=== PATIENT | male | born 1940 | race Caucasian/White ===

== ENCOUNTER 2017-07-09 18:23 | Observation (INO) ==
[2017-07-09 19:41] LABS: Basophils # 0.1 10*3/uL (0.0-0.2); Eosinophils # 0.1 10*3/uL (0.0-0.87); Hematocrit 41.8 VOL% (42.0-52.0); Hemoglobin 13.7 GM/DL (14.0-18.0); Immature Granulocytes % 0.5 %; Immature Granulocytes Absolute 0.03 #; Lymphocytes # 2.1 10*3/uL (1.4-4.0); Lymphocytes % 34.8 % (21.2-54.2); Mean Corpuscular HGB Conc 32.8 GM/DL (32-36); Mean Corpuscular Hemoglobin 30 PG (27-34); Mean Corpuscular Volume 90.9 FL (87-102); Mean Platelet Volume 10.9 FL (9.6-12.0); Monocytes # 0.4 10*3/uL (0.11-0.8); Monocytes % 6.6 % (1.7-12.7); Neutrophils # 3.2 10*3/uL (1.4-7.4); Neutrophils % 55.1 % (38.7-73.9); Platelet Count 163 T/CUMM (130-400); Red Cell Distribution Width 13.5 % (9.3-17.3); White Blood Count 5.9 T/CUMM (4-12)
[2017-07-09 19:54] LABS: INR 1.1; PT Patient Result 11.8 SECS
[2017-07-09 20:05] LABS: Albumin 3.5 G/DL (3.4-5.0); Bilirubin,Total 0.9 MG/DL (0.2-1.0); Calcium 8.5 MG/DL (8.5-10.1); Osmolality,Calculated 279.4 MOS/KG (273-304); Potassium 4.1 MMOL/L (3.5-5.1); Total Protein 6.8 G/DL (6.4-8.3)
[2017-07-09 20:11] LABS: Troponin I Only 0.061 NG/ML (0.00-0.045)
[2017-07-09] MEDS ORDERED: ASPIRIN 325 MG TABLET PO STA (22:53)
[2017-07-09] MEDS ORDERED: ENOXAPARIN 100 MG/ML SYRINGE SUBCUT STA (22:53)
[2017-07-09] MEDS ORDERED: METOPROLOL TARTRATE 25 MG TABLET PO STA (22:53)
[2017-07-09] MEDS ORDERED: ONDANSETRON 4 MG/2 ML VIAL IV STA (22:53)
[2017-07-09] MEDS ORDERED: MORPHINE 4 MG/1 ML VIAL IV STA (22:53)
[2017-07-09] MEDS ORDERED: NITROGLYCERIN 2% OINT 1 INCH/GM PACK TOP STA (22:53)
[2017-07-09] MEDS ORDERED: NITROGLYCERIN 2% OINT 1 INCH/GM PACK TOP ONE (22:56)
[2017-07-09] MEDS ORDERED: ENOXAPARIN 100 MG/ML SYRINGE SUBCUT ONE (22:56)
[2017-07-09] MEDS ORDERED: MORPHINE 4 MG/1 ML VIAL ONE (22:57)
[2017-07-09] MEDS ORDERED: METOPROLOL TARTRATE 25 MG TABLET ONE (22:57)
[2017-07-09] MEDS ORDERED: ASPIRIN 325 MG TABLET ONE (22:57)
[2017-07-09] MEDS ORDERED: ONDANSETRON 4 MG/2 ML VIAL ONE (22:57)
[2017-07-10] MEDS ORDERED: ONDANSETRON 4 MG/2 ML VIAL IV PRN (00:59)
[2017-07-10] MEDS ORDERED: MORPHINE 4 MG/1 ML VIAL IV PRN (00:59)
[2017-07-10] MEDS ORDERED: NITROGLYCERIN SL 0.4 MG TABLET SL PRN (01:21)
[2017-07-10] MEDS: CILOSTAZOL 100 MG TABLET PO SCH ×3 (02:35→20:47)
[2017-07-10 05:02] LABS: Hematocrit 39.1 VOL% (42.0-52.0); Hemoglobin 12.7 GM/DL (14.0-18.0); White Blood Count 4.2 T/CUMM (4-12)
[2017-07-10 05:03] LABS: Basophils # 0.1 10*3/uL (0.0-0.2); Basophils % 1.2 % (0.0-0.8); Eosinophils # 0.1 10*3/uL (0.0-0.87); Eosinophils % 3.3 % (0.00-10.9); Immature Granulocytes % 0.2 %; Immature Granulocytes Absolute 0.01 #; Lymphocytes % 47.7 % (21.2-54.2); Mean Corpuscular HGB Conc 32.5 GM/DL (32-36); Mean Corpuscular Hemoglobin 30 PG (27-34); Mean Corpuscular Volume 90.9 FL (87-102); Mean Platelet Volume 11.3 FL (9.6-12.0); Monocytes # 0.3 10*3/uL (0.11-0.8); Monocytes % 7.1 % (1.7-12.7); Neutrophils # 1.7 10*3/uL (1.4-7.4); Neutrophils % 40.5 % (38.7-73.9); Platelet Count 140 T/CUMM (130-400); Red Cell Distribution Width 13.5 % (9.3-17.3)
[2017-07-10] MEDS: LEVOTHYROXINE 50 MCG TABLET PO SCH (06:15)
[2017-07-10 06:25] LABS: Calcium 8.2 MG/DL (8.5-10.1); Osmolality,Calculated 282.1 MOS/KG (273-304); Potassium 3.9 MMOL/L (3.5-5.1); Risk Ratio 2.37; Thyroid Stimulating Hormone 1.88 uIU/ml (0.358-3.74); VLDL CHOLESTEROL 22.6 MG/DL
[2017-07-10] MEDS: FUROSEMIDE 40 MG TABLET PO SCH (09:06)
[2017-07-10] MEDS: POTASSIUM CHLORIDE 20 MEQ TABLET PO SCH (09:06)
[2017-07-10] MEDS: ASPIRIN EC 81 MG TABLET PO SCH (09:06)
[2017-07-10] MEDS: BISOPROLOL 5 MG TABLET PO SCH (09:07)
[2017-07-10] MEDS: PANTOPRAZOLE 40 MG TABLET PO SCH (09:07)
[2017-07-10] MEDS: amLODIPine 5 MG TABLET PO SCH (09:07)
[2017-07-10] MEDS: CYANOCOBALAMIN 500 MCG TABLET PO SCH (09:07)
[2017-07-10] MEDS: ENOXAPARIN 100 MG/ML SYRINGE SUBCUT SCH (12:34)
[2017-07-10] MEDS: ATORVASTATIN 10 MG TABLET PO SCH (20:47)
[2017-07-11 04:27] LABS: Basophils % 0.7 % (0.0-0.8); Eosinophils # 0.1 10*3/uL (0.0-0.87); Eosinophils % 2.4 % (0.00-10.9); Hematocrit 38.3 VOL% (42.0-52.0); Hemoglobin 13.2 GM/DL (14.0-18.0); Immature Granulocytes % 0.2 %; Immature Granulocytes Absolute 0.01 #; Lymphocytes # 1.6 10*3/uL (1.4-4.0); Lymphocytes % 29.9 % (21.2-54.2); Mean Corpuscular HGB Conc 34.5 GM/DL (32-36); Mean Corpuscular Hemoglobin 30 PG (27-34); Mean Platelet Volume 10.8 FL (9.6-12.0); Monocytes # 0.4 10*3/uL (0.11-0.8); Monocytes % 6.7 % (1.7-12.7); Neutrophils # 3.2 10*3/uL (1.4-7.4); Neutrophils % 60.1 % (38.7-73.9); Platelet Count 142 T/CUMM (130-400); Red Blood Count 4.35 MC/CUMM (3.8-5.5); Red Cell Distribution Width 13.2 % (9.3-17.3); White Blood Count 5.4 T/CUMM (4-12)
[2017-07-11 05:00] LABS: Calcium 8.4 MG/DL (8.5-10.1); Osmolality,Calculated 280.3 MOS/KG (273-304); Potassium 3.6 MMOL/L (3.5-5.1)
[2017-07-11] MEDS: LEVOTHYROXINE 50 MCG TABLET PO SCH (06:15)
[2017-07-11] MEDS: ASPIRIN EC 81 MG TABLET PO SCH (08:38)
[2017-07-11] MEDS: FUROSEMIDE 40 MG TABLET PO SCH (08:38)
[2017-07-11] MEDS: CILOSTAZOL 100 MG TABLET PO SCH ×2 (08:38→21:58)
[2017-07-11] MEDS: POTASSIUM CHLORIDE 20 MEQ TABLET PO SCH (08:39)
[2017-07-11] MEDS: CYANOCOBALAMIN 500 MCG TABLET PO SCH (08:39)
[2017-07-11] MEDS: PANTOPRAZOLE 40 MG TABLET PO SCH (08:40)
[2017-07-11] MEDS: amLODIPine 5 MG TABLET PO SCH (08:40)
[2017-07-11] MEDS: BISOPROLOL 5 MG TABLET PO SCH (08:41)
[2017-07-11] MEDS ORDERED: diphenhydrAMINE CAP 25 MG CAPSULE PO ONE (12:00)
[2017-07-11] MEDS ORDERED: ASPIRIN 325 MG TABLET PO ONE (12:00)
[2017-07-11] MEDS ORDERED: DIAZEPAM 5 MG TABLET PO ONE (12:00)
[2017-07-11] MEDS ORDERED: SODIUM CHLORIDE 0.45% 1,000 ML IV SCH (12:00)
[2017-07-11] MEDS ORDERED: HEPARIN/NACL 0.9% 2 UNITS/ML 1,000 ML IV ONE (12:25)
[2017-07-11] MEDS ORDERED: MAGNESIUM SULF RIDER 2 GM in PREMIX 1 EACH IV PRN (12:41)
[2017-07-11] MEDS ORDERED: POTASSIUM CHLORIDE RIDER 10 MEQ in PREMIX 1 EACH IV PRN (12:41)
[2017-07-11] MEDS ORDERED: diphenhydrAMINE CAP 25 MG CAPSULE ONE (12:43)
[2017-07-11] MEDS ORDERED: MIDAZOLAM 2 MG/2 ML VIAL ONE (13:10)
[2017-07-11] MEDS ORDERED: HYDROmorphone 2 MG/1 ML VIAL ONE (13:10)
[2017-07-11] MEDS ORDERED: BIVALIRUDIN 250 MG VIAL IV ONE (13:36)
[2017-07-11] MEDS ORDERED: ONDANSETRON 4 MG/2 ML VIAL ONE (14:45)
[2017-07-11] MEDS ORDERED: HEPARIN/NACL 0.9% 2 UNITS/ML 500 ML IV ONE (14:55)
[2017-07-11] MEDS ORDERED: TICAGRELOR 90 MG TABLET ONE (15:22)
[2017-07-11] MEDS ORDERED: ZALEPLON 5 MG CAPSULE PO PRN (15:30)
[2017-07-11] MEDS: TICAGRELOR 90 MG TABLET PO SCH (21:58)
[2017-07-11] MEDS: ATORVASTATIN 10 MG TABLET PO SCH (21:58)
[2017-07-12] MEDS: ENOXAPARIN 100 MG/ML SYRINGE SUBCUT SCH (03:13)
[2017-07-12 05:26] LABS: Basophils % 0.3 % (0.0-0.8); Eosinophils # 0.1 10*3/uL (0.0-0.87); Hematocrit 37.6 VOL% (42.0-52.0); Hemoglobin 13.1 GM/DL (14.0-18.0); Immature Granulocytes % 0.3 %; Immature Granulocytes Absolute 0.02 #; Lymphocytes # 1.4 10*3/uL (1.4-4.0); Lymphocytes % 23.2 % (21.2-54.2); Mean Corpuscular HGB Conc 34.8 GM/DL (32-36); Mean Corpuscular Hemoglobin 30 PG (27-34); Mean Corpuscular Volume 86.2 FL (87-102); Mean Platelet Volume 11.3 FL (9.6-12.0); Monocytes # 0.5 10*3/uL (0.11-0.8); Monocytes % 7.6 % (1.7-12.7); Neutrophils % 67.6 % (38.7-73.9); Platelet Count 157 T/CUMM (130-400); Red Blood Count 4.36 MC/CUMM (3.8-5.5); Red Cell Distribution Width 13.2 % (9.3-17.3); White Blood Count 5.9 T/CUMM (4-12)
[2017-07-12 05:57] LABS: Calcium 8.3 MG/DL (8.5-10.1); Osmolality,Calculated 275.7 MOS/KG (273-304); Potassium 3.6 MMOL/L (3.5-5.1)
[2017-07-12 06:00] LABS: Calcium 8.5 MG/DL (8.5-10.1); Osmolality,Calculated 275.7 MOS/KG (273-304); Potassium 3.5 MMOL/L (3.5-5.1)
[2017-07-12 06:09] LABS: Troponin I Only 0.181 NG/ML (0.00-0.045)
[2017-07-12] MEDS: LEVOTHYROXINE 50 MCG TABLET PO SCH (06:32)
[2017-07-12] MEDS: TICAGRELOR 90 MG TABLET PO SCH ×2 (08:50→20:54)
[2017-07-12] MEDS: ASPIRIN EC 81 MG TABLET PO SCH (08:50)
[2017-07-12] MEDS: BISOPROLOL 5 MG TABLET PO SCH (08:51)
[2017-07-12] MEDS: POTASSIUM CHLORIDE 20 MEQ TABLET PO SCH (08:51)
[2017-07-12] MEDS: CYANOCOBALAMIN 500 MCG TABLET PO SCH (08:52)
[2017-07-12] MEDS: FUROSEMIDE 40 MG TABLET PO SCH (08:53)
[2017-07-12] MEDS: amLODIPine 5 MG TABLET PO SCH (08:56)
[2017-07-12] MEDS: PANTOPRAZOLE 40 MG TABLET PO SCH (09:05)
[2017-07-12] MEDS: CILOSTAZOL 100 MG TABLET PO SCH ×2 (10:34→20:54)
[2017-07-12 12:03] LABS: Apearance,Urine CLOUDY (Clear); Bacteria,Urine Occasional /HPF (Few); Bilirubin,Urine Negative (Negative); Blood, Urine Large mg/dL (Negative); Glucose,Urine (UA) Negative (Negative); Ketones,Urine Negative (Negative); Mucus,Urine Occasional /LPF (Occasional); Nitrite,Urine Negative (Negative); Protein,Urine 100 MG/DL; RBC,Urine 390 /HPF (0-4); Urine Color Amber (Yellow); Urine Specific Gravity 1.029 (1.001-1.035); WBC,Urine 336 /HPF (0-6)
[2017-07-12] MEDS ORDERED: LIDOCAINE 100 MG/5 ML SYRINGE ONE (12:36)
[2017-07-12] MEDS ORDERED: PROPOFOL 200 MG/20 ML VIAL IV ONE (12:36)
[2017-07-12] MEDS ORDERED: GLYCOPYRROLATE 0.4 MG/2 ML VIAL ONE (12:36)
[2017-07-12] MEDS: cefTRIAXone 2,000 MG in SYRINGE 1 EACH IV SCH (15:59)
[2017-07-12] MEDS: ATORVASTATIN 80 MG TABLET PO SCH (20:54)
[2017-07-13] MEDS: LEVOTHYROXINE 50 MCG TABLET PO SCH (06:49)
[2017-07-13] MEDS: TICAGRELOR 90 MG TABLET PO SCH ×2 (08:25→21:11)
[2017-07-13] MEDS: FUROSEMIDE 40 MG TABLET PO SCH (08:25)
[2017-07-13] MEDS: CILOSTAZOL 100 MG TABLET PO SCH (08:25)
[2017-07-13] MEDS: amLODIPine 5 MG TABLET PO SCH (08:25)
[2017-07-13] MEDS: BISOPROLOL 5 MG TABLET PO SCH (08:25)
[2017-07-13] MEDS: PANTOPRAZOLE 40 MG TABLET PO SCH (08:25)
[2017-07-13] MEDS: ASPIRIN EC 81 MG TABLET PO SCH (08:25)
[2017-07-13] MEDS: POTASSIUM CHLORIDE 20 MEQ TABLET PO SCH (08:25)
[2017-07-13] MEDS: CYANOCOBALAMIN 500 MCG TABLET PO SCH (08:25)
[2017-07-13] MEDS: cefTRIAXone 2,000 MG in SYRINGE 1 EACH IV SCH (14:39)
[2017-07-13] MEDS ORDERED: TAMSULOSIN 0.4 MG CAPSULE PO SCH (21:00)
[2017-07-13] MEDS: CIPROFLOXACIN 250 MG TABLET PO SCH (21:11)
[2017-07-13] MEDS: ATORVASTATIN 80 MG TABLET PO SCH (21:11)
[2017-07-14] MEDS: LEVOTHYROXINE 50 MCG TABLET PO SCH (05:49)
[2017-07-14] MEDS: CYANOCOBALAMIN 500 MCG TABLET PO SCH (08:44)
[2017-07-14] MEDS: ASPIRIN EC 81 MG TABLET PO SCH (08:44)
[2017-07-14] MEDS: amLODIPine 5 MG TABLET PO SCH (08:44)
[2017-07-14] MEDS: BISOPROLOL 5 MG TABLET PO SCH (08:44)
[2017-07-14] MEDS: TICAGRELOR 90 MG TABLET PO SCH (08:44)
[2017-07-14] MEDS: POTASSIUM CHLORIDE 20 MEQ TABLET PO SCH (08:45)
[2017-07-14] MEDS: PANTOPRAZOLE 40 MG TABLET PO SCH (08:45)
[2017-07-14] MEDS: FUROSEMIDE 40 MG TABLET PO SCH (08:45)
[2017-07-14] MEDS: CIPROFLOXACIN 250 MG TABLET PO SCH (08:45)
[2017-07-14 12:06] VITALS: BP 107/61
== END 2017-07-14 13:30 | disposition home or self-care (01) ==
LOC: N.EDINP 18:23 → N.ED 18:23 → SUATTDRO 07-10 00:57 → N.CC 07-10 01:53 → N.TELEN 07-12 18:08
PROVIDERS: ATTEND Hospitalist
PROC: CLCCHCL (ICD-10-PCS; 2017-07-11 14:15)

== ENCOUNTER 2018-11-11 18:06 | Inpatient (IN) ==
[2018-11-11 18:53] LABS: Basophils % 0.2 % (0.0-0.8); Hematocrit 44.3 VOL% (42.0-52.0); Immature Granulocytes % 0.5 %; Immature Granulocytes Absolute 0.05 #; Lymphocytes # 1.1 10*3/uL (1.4-4.0); Lymphocytes % 10.3 % (21.2-54.2); Mean Corpuscular HGB Conc 33.9 GM/DL (32-36); Mean Corpuscular Volume 89.5 FL (87-102); Mean Platelet Volume 10.9 FL (9.6-12.0); Monocytes % 8.2 % (1.7-12.7); Neutrophils % 80.8 % (38.7-73.9); Platelet Count 134 T/CUMM (130-400); Red Blood Count 4.95 MC/CUMM (3.8-5.5); Red Cell Distribution Width 13.1 % (9.3-17.3); White Blood Count 10.3 T/CUMM (4-12)
[2018-11-11 19:07] LABS: Albumin 3.4 G/DL (3.4-5.0); Bilirubin,Total 2.6 MG/DL (0.2-1.0); Calcium 8.9 MG/DL (8.5-10.1); Osmolality,Calculated 277.8 MOS/KG (273-304); Total Protein 7.5 G/DL (6.4-8.3)
[2018-11-11] MEDS ORDERED: SODIUM CHLORIDE 0.9% 1,000 ML IV STA (19:38)
[2018-11-11] MEDS ORDERED: POTASSIUM CHLORIDE 20 MEQ TABLET PO STA (19:38)
[2018-11-11] MEDS ORDERED: LABETALOL 100 MG/20 ML VIAL IV PRN (20:40)
[2018-11-11] MEDS ORDERED: ONDANSETRON 4 MG/2 ML VIAL IV PRN (20:40)
[2018-11-11] MEDS ORDERED: ENOXAPARIN 40 MG/0.4 ML SYRINGE SUBCUT SCH (21:00)
[2018-11-11 21:09] LABS: Risk Ratio 2.58
[2018-11-12 02:31] LABS: Apearance,Urine CLEAR (Clear); Bacteria,Urine Occasional /HPF (Few); Bilirubin,Urine Negative (Negative); Blood, Urine Moderate mg/dL (Negative); Glucose,Urine (UA) 50 mg/dL (Negative); Ketones,Urine 5 mg/dL (Negative); Mucus,Urine Occasional /LPF (Occasional); Nitrite,Urine Negative (Negative); Protein,Urine Negative; RBC,Urine 2 /HPF (0-4); Squamous Epithelial Cell,Urine Occasional /HPF (0-10); Urine Color Yellow (Yellow); Urine Specific Gravity 1.018 (1.001-1.035); Urine Urobilinogen < 2.0 EU/DL (0.2-1.0); WBC,Urine 1 /HPF (0-6)
[2018-11-12 02:52] LABS: Barbiturates Screen,Urine Negative (Negative); Benzodiazepines Screen,Urine Negative (Negative); Cannabinoid Screen,Urine Negative (Negative); Opiate Screen,Urine Negative (Negative); Phencyclidine Screen,Urine Negative (Negative)
[2018-11-12] MEDS: CILOSTAZOL 100 MG TABLET PO SCH ×3 (07:12→22:46)
[2018-11-12 07:42] LABS: Bilirubin,Total 2.7 MG/DL (0.2-1.0); Calcium 8.6 MG/DL (8.5-10.1); Osmolality,Calculated 278.7 MOS/KG (273-304); Total Protein 6.9 G/DL (6.4-8.3)
[2018-11-12 08:01] LABS: Calcium 8.5 MG/DL (8.5-10.1); Osmolality,Calculated 278.7 MOS/KG (273-304)
[2018-11-12] MEDS: amLODIPine 2.5 MG TABLET PO SCH (09:47)
[2018-11-12] MEDS: CHLORTHALIDONE 25 MG TABLET PO SCH (09:47)
[2018-11-12] MEDS: LEVOTHYROXINE 50 MCG TABLET PO SCH (09:47)
[2018-11-12] MEDS: PANTOPRAZOLE 40 MG TABLET PO SCH (09:47)
[2018-11-12] MEDS: BISOPROLOL 5 MG TABLET PO SCH (09:47)
[2018-11-12] MEDS: TICAGRELOR 90 MG TABLET PO SCH (09:47)
[2018-11-12] MEDS: ATORVASTATIN 10 MG TABLET PO SCH (09:48)
[2018-11-12] MEDS: ACETAMINOPHEN 325 MG TABLET PO PRN ×2 (09:52→22:46)
[2018-11-12] MEDS ORDERED: LORazepam 2 MG/1 ML VIAL IV ONE (10:47)
[2018-11-12] MEDS: CARBIDOPA/LEVODOPA 25-100 MG TABLET PO SCH (22:46)
[2018-11-13 08:04] LABS: Basophils % 0.3 % (0.0-0.8); Hematocrit 42.7 VOL% (42.0-52.0); Hemoglobin 14.7 GM/DL (14.0-18.0); Immature Granulocytes % 0.6 %; Immature Granulocytes Absolute 0.05 #; Lymphocytes # 0.6 10*3/uL (1.4-4.0); Lymphocytes % 7.3 % (21.2-54.2); Mean Corpuscular HGB Conc 34.4 GM/DL (32-36); Mean Corpuscular Volume 88.8 FL (87-102); Mean Platelet Volume 10.9 FL (9.6-12.0); Monocytes % 5.7 % (1.7-12.7); Neutrophils % 86.1 % (38.7-73.9); Platelet Count 122 T/CUMM (130-400); Red Blood Count 4.81 MC/CUMM (3.8-5.5); White Blood Count 7.9 T/CUMM (4-12)
[2018-11-13 08:08] LABS: Calcium 8.3 MG/DL (8.5-10.1)
[2018-11-13 08:09] LABS: Osmolality,Calculated 280.7 MOS/KG (273-304)
[2018-11-13] MEDS: PANTOPRAZOLE 40 MG TABLET PO SCH (09:00)
[2018-11-13] MEDS: BISOPROLOL 5 MG TABLET PO SCH (09:00)
[2018-11-13] MEDS: amLODIPine 2.5 MG TABLET PO SCH (09:00)
[2018-11-13] MEDS: ATORVASTATIN 10 MG TABLET PO SCH (09:00)
[2018-11-13] MEDS: TICAGRELOR 90 MG TABLET PO SCH (09:00)
[2018-11-13] MEDS: CHLORTHALIDONE 25 MG TABLET PO SCH (09:00)
[2018-11-13] MEDS: CARBIDOPA/LEVODOPA 25-100 MG TABLET PO SCH ×3 (09:00→20:31)
[2018-11-13] MEDS: CILOSTAZOL 100 MG TABLET PO SCH ×2 (09:00→20:31)
[2018-11-13] MEDS: LEVOTHYROXINE 50 MCG TABLET PO SCH (09:00)
[2018-11-13] MEDS: ACETAMINOPHEN 325 MG TABLET PO PRN (11:32)
[2018-11-13 14:03] LABS: INR 1.2
[2018-11-14 05:58] LABS: Basophils % 0.1 % (0.0-0.8); Hematocrit 44.4 VOL% (42.0-52.0); Hemoglobin 15.3 GM/DL (14.0-18.0); Immature Granulocytes % 0.4 %; Immature Granulocytes Absolute 0.03 #; Lymphocytes # 0.3 10*3/uL (1.4-4.0); Lymphocytes % 4.4 % (21.2-54.2); Mean Corpuscular HGB Conc 34.5 GM/DL (32-36); Mean Corpuscular Volume 88.6 FL (87-102); Mean Platelet Volume 11.6 FL (9.6-12.0); Monocytes % 6.2 % (1.7-12.7); Neutrophils % 88.9 % (38.7-73.9); Platelet Count 142 T/CUMM (130-400); Red Blood Count 5.01 MC/CUMM (3.8-5.5); Red Cell Distribution Width 13.2 % (9.3-17.3); White Blood Count 7.8 T/CUMM (4-12)
[2018-11-14] MEDS ORDERED: cefTRIAXone 1,000 MG in SYRINGE 1 EACH IV SCH (06:00)
[2018-11-14] MEDS: ALBUTEROL/IPRATROPIUM 3 ML NEB RESP TX SCH ×3 (06:14→21:10)
[2018-11-14] MEDS: LEVOTHYROXINE 50 MCG TABLET PO SCH (06:23)
[2018-11-14 06:25] LABS: Band Neutrophils 4 % (0-10); Hypochromasia 1+; Lymphocytes 7 % (20-55); Platelet Estimate Normal; Segmented Neutrophils 87 % (50-85); Total Cells Counted 100
[2018-11-14 06:26] LABS: Ovalocytes Slight
[2018-11-14 06:31] LABS: Calcium 9.1 MG/DL (8.5-10.1); Osmolality,Calculated 290.4 MOS/KG (273-304)
[2018-11-14] MEDS ORDERED: AZITHROMYCIN INJ 500 MG in SODIUM CHLORIDE 0.9% 250 ML IV SCH (07:00)
[2018-11-14] MEDS ORDERED: LORazepam 2 MG/1 ML VIAL IV ONE (07:52)
[2018-11-14 08:22] LABS: ABG Base Excess 3.3 MMOL/L (-2.5-2.5); ABG HCO3 27.2 MMOL/L (20-26); ABG Oxygen Saturation 93.9 % (95-100); ABG PCO2 60.5 MM HG (35-48); ABG PH 7.326 (7.35-7.45); ABG PO2 77.6 MM HG (80-95); ABG TCO2 27.1 MMOL/L (23-27)
[2018-11-14] MEDS ORDERED: ETOMIDATE 20 MG/10 ML VIAL IV ONE ×2 (08:34→08:47)
[2018-11-14] MEDS ORDERED: SUCCINYLCHOLINE 200 MG/10 ML VIAL IV ONE (08:35)
[2018-11-14] MEDS ORDERED: fentaNYL 100 MCG/2 ML VIAL IV ONE (08:39)
[2018-11-14] MEDS ORDERED: PROPOFOL 1,000 MG/100 ML BOTTLE IV ONE (08:39)
[2018-11-14] MEDS ORDERED: SUCCINYLCHOLINE 200 MG/10 ML VIAL ONE (08:46)
[2018-11-14] MEDS: PROPOFOL 1,000 MG/100 ML BOTTLE IV SCH (09:00)
[2018-11-14 09:04] LABS: Pt O2 Delivery Device Ventilator
[2018-11-14 09:05] LABS: ABG Base Excess 1.3 MMOL/L (-2.5-2.5); ABG HCO3 25.6 MMOL/L (20-26); ABG Oxygen Saturation 99.7 % (95-100); ABG PCO2 51.9 MM HG (35-48); ABG PH 7.344 (7.35-7.45); ABG TCO2 24.3 MMOL/L (23-27)
[2018-11-14] MEDS: ATORVASTATIN 10 MG TABLET PO SCH (09:42)
[2018-11-14] MEDS: amLODIPine 2.5 MG TABLET PO SCH (09:42)
[2018-11-14] MEDS: CHLORTHALIDONE 25 MG TABLET PO SCH (09:42)
[2018-11-14] MEDS: PANTOPRAZOLE 40 MG TABLET PO SCH (09:43)
[2018-11-14] MEDS: CILOSTAZOL 100 MG TABLET PO SCH ×2 (09:43→22:01)
[2018-11-14] MEDS: CARBIDOPA/LEVODOPA 25-100 MG TABLET PO SCH ×3 (09:43→22:01)
[2018-11-14] MEDS: BISOPROLOL 5 MG TABLET PO SCH ×3 (09:43→22:01)
[2018-11-14] MEDS ORDERED: cefTRIAXone 1,000 MG in SYRINGE 1 EACH IV ONE (10:00)
[2018-11-14] MEDS: AMPICILLIN INJ 2,000 MG in SODIUM CHLORIDE 0.9% 100 ML IV SCH ×3 (10:25→22:11)
[2018-11-14] MEDS: POTASSIUM CHLORIDE INJ 30 MEQ in SODIUM CHLORIDE 0.9% 1,000 ML IV SCH (13:38)
[2018-11-14] MEDS: VANCOMYCIN INJ 1,250 MG in SODIUM CHLORIDE 0.9% 250 ML IV SCH (15:30)
[2018-11-14 21:01] LABS: Basophils % 0.2 % (0.0-0.8); Calcium 8.5 MG/DL (8.5-10.1); Hematocrit 43.3 VOL% (42.0-52.0); Hemoglobin 14.3 GM/DL (14.0-18.0); Immature Granulocytes % 1.3 %; Immature Granulocytes Absolute 0.08 #; Lymphocytes # 0.4 10*3/uL (1.4-4.0); Lymphocytes % 6.5 % (21.2-54.2); Mean Corpuscular Volume 93.7 FL (87-102); Osmolality,Calculated 289.5 MOS/KG (273-304); Platelet Count 101 T/CUMM (130-400); Red Blood Count 4.62 MC/CUMM (3.8-5.5); Red Cell Distribution Width 13.6 % (9.3-17.3); White Blood Count 6.4 T/CUMM (4-12)
[2018-11-14 21:20] LABS: Albumin 3.2 G/DL (3.4-5.0); Bilirubin,Direct 0.44 MG/DL (0.0-0.20); Bilirubin,Indirect 0.8 MG/DL (0.0-1.0); Bilirubin,Total 1.2 MG/DL (0.2-1.0)
[2018-11-14] MEDS: cefTRIAXone 2,000 MG in SYRINGE 1 EACH IV SCH (21:46)
[2018-11-14] MEDS ORDERED: METOPROLOL TARTRATE 5 MG/5 ML VIAL IV ONE (21:58)
[2018-11-14] MEDS: POTASSIUM CHLORIDE RIDER 10 MEQ in PREMIX 1 EACH IV PRN ×2 (22:52→23:52)
[2018-11-14] MEDS ORDERED: ACETAMINOPHEN 650 MG SUPP RECTAL PRN (23:27)
[2018-11-15] MEDS: POTASSIUM CHLORIDE RIDER 10 MEQ in PREMIX 1 EACH IV PRN ×3 (00:50→02:59)
[2018-11-15] MEDS: POTASSIUM CHLORIDE INJ 30 MEQ in SODIUM CHLORIDE 0.9% 1,000 ML IV SCH ×2 (00:50→16:14)
[2018-11-15] MEDS: ALBUTEROL/IPRATROPIUM 3 ML NEB RESP TX SCH ×4 (00:52→20:40)
[2018-11-15] MEDS: AMPICILLIN INJ 2,000 MG in SODIUM CHLORIDE 0.9% 100 ML IV SCH ×4 (04:01→21:54)
[2018-11-15 06:22] LABS: Basophils % 0.1 % (0.0-0.8); Hematocrit 42.3 VOL% (42.0-52.0); Hemoglobin 14.3 GM/DL (14.0-18.0); Immature Granulocytes % 0.8 %; Immature Granulocytes Absolute 0.06 #; Lymphocytes # 0.5 10*3/uL (1.4-4.0); Lymphocytes % 6.9 % (21.2-54.2); Mean Corpuscular HGB Conc 33.8 GM/DL (32-36); Mean Corpuscular Volume 91.8 FL (87-102); Mean Platelet Volume 11.4 FL (9.6-12.0); Monocytes % 5.5 % (1.7-12.7); Neutrophils % 86.7 % (38.7-73.9); Platelet Count 131 T/CUMM (130-400); Red Blood Count 4.61 MC/CUMM (3.8-5.5); Red Cell Distribution Width 13.7 % (9.3-17.3); White Blood Count 7.7 T/CUMM (4-12)
[2018-11-15 06:41] LABS: Calcium 8.7 MG/DL (8.5-10.1); Hypochromasia 1+; Microcytosis Slight; Osmolality,Calculated 301.6 MOS/KG (273-304); Ovalocytes Few
[2018-11-15 06:42] LABS: Platelet Estimate Adequate
[2018-11-15] MEDS: LEVOTHYROXINE 50 MCG TABLET PO SCH (06:42)
[2018-11-15] MEDS: PROPOFOL 1,000 MG/100 ML BOTTLE IV SCH (08:07)
[2018-11-15] MEDS ORDERED: METOPROLOL TARTRATE 5 MG/5 ML VIAL IV ONE (10:18)
[2018-11-15] MEDS ORDERED: DILTIAZEM 50 MG/10 ML VIAL IV ONE (10:19)
[2018-11-15] MEDS: cefTRIAXone 2,000 MG in SYRINGE 1 EACH IV SCH ×2 (10:20→20:15)
[2018-11-15] MEDS: METOPROLOL TARTRATE 25 MG TABLET PO SCH ×2 (12:37→20:15)
[2018-11-15] MEDS: CILOSTAZOL 100 MG TABLET PO SCH ×2 (12:37→20:15)
[2018-11-15] MEDS: PANTOPRAZOLE 40 MG TABLET PO SCH (12:37)
[2018-11-15] MEDS: amLODIPine 2.5 MG TABLET PO SCH (12:37)
[2018-11-15] MEDS: CARBIDOPA/LEVODOPA 25-100 MG TABLET PO SCH ×3 (12:37→20:15)
[2018-11-15] MEDS: BISOPROLOL 5 MG TABLET PO SCH ×2 (12:37→20:15)
[2018-11-15] MEDS: CHLORTHALIDONE 25 MG TABLET PO SCH (12:37)
[2018-11-15] MEDS: ATORVASTATIN 10 MG TABLET PO SCH (12:37)
[2018-11-15] MEDS: POTASSIUM CHLORIDE 20 MEQ TABLET PO PRN ×2 (20:15→21:54)
[2018-11-15] MEDS: VANCOMYCIN INJ 1,250 MG in SODIUM CHLORIDE 0.9% 250 ML IV SCH (20:16)
[2018-11-16] MEDS: ALBUTEROL/IPRATROPIUM 3 ML NEB RESP TX SCH ×4 (02:38→19:00)
[2018-11-16] MEDS: AMPICILLIN INJ 2,000 MG in SODIUM CHLORIDE 0.9% 100 ML IV SCH ×4 (05:24→22:43)
[2018-11-16] MEDS: LEVOTHYROXINE 50 MCG TABLET PO SCH (05:37)
[2018-11-16 05:42] LABS: Basophils % 0.1 % (0.0-0.8); Hematocrit 39.6 VOL% (42.0-52.0); Hemoglobin 13.2 GM/DL (14.0-18.0); Immature Granulocytes % 0.7 %; Immature Granulocytes Absolute 0.05 #; Lymphocytes # 0.5 10*3/uL (1.4-4.0); Lymphocytes % 7.3 % (21.2-54.2); Mean Corpuscular HGB Conc 33.3 GM/DL (32-36); Mean Corpuscular Volume 90.4 FL (87-102); Mean Platelet Volume 11.5 FL (9.6-12.0); Monocytes % 5.5 % (1.7-12.7); Neutrophils % 86.4 % (38.7-73.9); Platelet Count 138 T/CUMM (130-400); Red Blood Count 4.38 MC/CUMM (3.8-5.5); Red Cell Distribution Width 13.9 % (9.3-17.3); White Blood Count 6.7 T/CUMM (4-12)
[2018-11-16 06:08] LABS: Bilirubin,Total 0.8 MG/DL (0.2-1.0); Calcium 8.5 MG/DL (8.5-10.1); Osmolality,Calculated 300.4 MOS/KG (273-304); Total Protein 6.4 G/DL (6.4-8.3)
[2018-11-16] MEDS: POTASSIUM CHLORIDE 20 MEQ TABLET PO PRN ×2 (06:21→20:09)
[2018-11-16] MEDS: POTASSIUM CHLORIDE INJ 30 MEQ in SODIUM CHLORIDE 0.9% 1,000 ML IV SCH (08:22)
[2018-11-16] MEDS: cefTRIAXone 2,000 MG in SYRINGE 1 EACH IV SCH ×2 (09:36→20:09)
[2018-11-16] MEDS: amLODIPine 2.5 MG TABLET PO SCH (09:36)
[2018-11-16] MEDS: BISOPROLOL 5 MG TABLET PO SCH ×2 (09:36→20:09)
[2018-11-16] MEDS: ATORVASTATIN 10 MG TABLET PO SCH (09:36)
[2018-11-16] MEDS: CHLORTHALIDONE 25 MG TABLET PO SCH (09:36)
[2018-11-16] MEDS: CILOSTAZOL 100 MG TABLET PO SCH ×2 (09:36→20:09)
[2018-11-16] MEDS: PANTOPRAZOLE 40 MG TABLET PO SCH (09:37)
[2018-11-16] MEDS: CARBIDOPA/LEVODOPA 25-100 MG TABLET PO SCH ×3 (09:37→20:09)
[2018-11-16] MEDS: METOPROLOL TARTRATE 25 MG TABLET PO SCH ×2 (09:37→20:09)
[2018-11-16] MEDS: POTASSIUM CHLORIDE INJ 20 MEQ in LACTATED RINGERS 1,000 ML IV SCH (17:41)
[2018-11-16] MEDS: VANCOMYCIN INJ 1,250 MG in SODIUM CHLORIDE 0.9% 250 ML IV SCH (20:46)
[2018-11-17] MEDS: ALBUTEROL/IPRATROPIUM 3 ML NEB RESP TX SCH ×4 (00:18→19:37)
[2018-11-17] MEDS: AMPICILLIN INJ 2,000 MG in SODIUM CHLORIDE 0.9% 100 ML IV SCH ×4 (05:00→23:41)
[2018-11-17] MEDS: LEVOTHYROXINE 50 MCG TABLET PO SCH (05:30)
[2018-11-17 06:12] LABS: Basophils % 0.1 % (0.0-0.8); Hematocrit 41.4 VOL% (42.0-52.0); Hemoglobin 13.8 GM/DL (14.0-18.0); Immature Granulocytes % 1.4 %; Lymphocytes # 0.5 10*3/uL (1.4-4.0); Mean Corpuscular HGB Conc 33.3 GM/DL (32-36); Mean Corpuscular Volume 92.8 FL (87-102); Mean Platelet Volume 11.5 FL (9.6-12.0); Monocytes % 5.7 % (1.7-12.7); Neutrophils % 85.8 % (38.7-73.9); Platelet Count 171 T/CUMM (130-400); Red Blood Count 4.46 MC/CUMM (3.8-5.5); Red Cell Distribution Width 14.3 % (9.3-17.3); White Blood Count 7.2 T/CUMM (4-12)
[2018-11-17 06:44] LABS: Calcium 8.9 MG/DL (8.5-10.1); Osmolality,Calculated 304.1 MOS/KG (273-304)
[2018-11-17] MEDS: POTASSIUM CHLORIDE INJ 20 MEQ in LACTATED RINGERS 1,000 ML IV SCH (07:39)
[2018-11-17] MEDS: cefTRIAXone 2,000 MG in SYRINGE 1 EACH IV SCH ×2 (08:47→21:00)
[2018-11-17] MEDS: CARBIDOPA/LEVODOPA 25-100 MG TABLET PO SCH ×3 (09:01→21:00)
[2018-11-17] MEDS: amLODIPine 2.5 MG TABLET PO SCH (09:01)
[2018-11-17] MEDS: PANTOPRAZOLE 40 MG TABLET PO SCH (09:01)
[2018-11-17] MEDS: CILOSTAZOL 100 MG TABLET PO SCH ×2 (09:01→21:00)
[2018-11-17] MEDS: METOPROLOL TARTRATE 25 MG TABLET PO SCH ×2 (09:01→21:00)
[2018-11-17] MEDS: ATORVASTATIN 10 MG TABLET PO SCH (09:01)
[2018-11-17] MEDS: BISOPROLOL 5 MG TABLET PO SCH ×2 (09:02→21:00)
[2018-11-17] MEDS: DEXTROSE 5% NACL 0.45% 1,000 ML IV SCH ×2 (13:25→22:50)
[2018-11-17] MEDS ORDERED: PROPOFOL 200 MG/20 ML VIAL IV ONE (15:48)
[2018-11-17] MEDS ORDERED: ETOMIDATE 20 MG/10 ML VIAL IV ONE ×2 (15:49→16:04)
[2018-11-17] MEDS ORDERED: SUCCINYLCHOLINE 200 MG/10 ML VIAL ONE (15:50)
[2018-11-17] MEDS ORDERED: PROPOFOL 1,000 MG/100 ML BOTTLE IV ONE (15:53)
[2018-11-17] MEDS: PROPOFOL 1,000 MG/100 ML BOTTLE IV SCH (16:00)
[2018-11-17] MEDS ORDERED: SUCCINYLCHOLINE 200 MG/10 ML VIAL IV ONE (16:04)
[2018-11-17 17:12] LABS: ABG Base Excess 4.1 MMOL/L (-2.5-2.5); ABG HCO3 29.9 MMOL/L (20-26); ABG PCO2 50.3 MM HG (35-48); ABG PH 7.392 (7.35-7.45); ABG PO2 77.4 MM HG (80-95); ABG TCO2 31.4 MMOL/L (23-27); Allen Test Positive; Pt O2 Delivery Device Ventilator
[2018-11-17 18:14] LABS: ABG Base Excess 5.1 MMOL/L (-2.5-2.5); ABG Oxygen Saturation 98.6 % (95-100); ABG PCO2 43.8 MM HG (35-48); ABG PH 7.442 (7.35-7.45); ABG TCO2 26.1 MMOL/L (23-27); Allen Test Positive; Pt O2 Delivery Device Ventilator
[2018-11-17] MEDS: POTASSIUM CHLORIDE 20 MEQ TABLET PO PRN (21:00)
[2018-11-17] MEDS: VANCOMYCIN INJ 1,250 MG in SODIUM CHLORIDE 0.9% 250 ML IV SCH (21:01)
[2018-11-18] MEDS: ALBUTEROL/IPRATROPIUM 3 ML NEB RESP TX SCH ×4 (00:07→19:17)
[2018-11-18] MEDS: POTASSIUM CHLORIDE 20 MEQ/15 ML UDCUP PER TUBE PRN ×7 (02:29→23:56)
[2018-11-18 04:22] LABS: ABG Base Excess 6.1 MMOL/L (-2.5-2.5); ABG HCO3 29.9 MMOL/L (20-26); ABG Oxygen Saturation 95.2 % (95-100); ABG PCO2 42.7 MM HG (35-48); ABG PH 7.465 (7.35-7.45); ABG PO2 74.4 MM HG (80-95); ABG TCO2 25.3 MMOL/L (23-27); Allen Test Positive; Pt O2 Delivery Device Ventilator
[2018-11-18] MEDS: AMPICILLIN INJ 2,000 MG in SODIUM CHLORIDE 0.9% 100 ML IV SCH ×4 (04:25→22:50)
[2018-11-18] MEDS: PROPOFOL 1,000 MG/100 ML BOTTLE IV SCH ×2 (05:57→16:41)
[2018-11-18 06:16] LABS: Calcium 8.1 MG/DL (8.5-10.1); Osmolality,Calculated 311.7 MOS/KG (273-304)
[2018-11-18 06:19] LABS: Eosinophils % 0.5 % (0.00-10.9); Hematocrit 35.2 VOL% (42.0-52.0); Hemoglobin 11.8 GM/DL (14.0-18.0); Immature Granulocytes % 1.6 %; Immature Granulocytes Absolute 0.07 #; Lymphocytes # 0.5 10*3/uL (1.4-4.0); Mean Corpuscular HGB Conc 33.5 GM/DL (32-36); Mean Corpuscular Volume 92.6 FL (87-102); Mean Platelet Volume 12.2 FL (9.6-12.0); Monocytes % 7.2 % (1.7-12.7); Neutrophils % 78.7 % (38.7-73.9); Platelet Count 165 T/CUMM (130-400); Red Cell Distribution Width 14.5 % (9.3-17.3); White Blood Count 4.3 T/CUMM (4-12)
[2018-11-18] MEDS: DEXTROSE 5% NACL 0.45% 1,000 ML IV SCH ×2 (08:18→08:55)
[2018-11-18] MEDS: PANTOPRAZOLE 40 MG TABLET PO SCH (09:52)
[2018-11-18] MEDS: METOPROLOL TARTRATE 25 MG TABLET PO SCH ×2 (09:52→21:38)
[2018-11-18] MEDS: ATORVASTATIN 10 MG TABLET PO SCH (09:52)
[2018-11-18] MEDS: BISOPROLOL 5 MG TABLET PO SCH ×2 (09:52→21:38)
[2018-11-18] MEDS: CARBIDOPA/LEVODOPA 25-100 MG TABLET PO SCH (09:52)
[2018-11-18] MEDS: VANCOMYCIN INJ 1,250 MG in SODIUM CHLORIDE 0.9% 250 ML IV SCH ×2 (09:52→22:50)
[2018-11-18] MEDS: LEVOTHYROXINE 50 MCG TABLET PO SCH (09:53)
[2018-11-18] MEDS: amLODIPine 2.5 MG TABLET PO SCH (09:53)
[2018-11-18] MEDS: CILOSTAZOL 100 MG TABLET PO SCH ×2 (09:53→21:38)
[2018-11-18] MEDS: cefTRIAXone 2,000 MG in SYRINGE 1 EACH IV SCH ×2 (10:22→19:31)
[2018-11-18] MEDS: DEXTROSE 5% 1,000 ML IV SCH ×2 (13:55→22:55)
[2018-11-19] MEDS: ALBUTEROL/IPRATROPIUM 3 ML NEB RESP TX SCH ×4 (01:33→19:32)
[2018-11-19 03:32] LABS: ABG Base Excess 5.1 MMOL/L (-2.5-2.5); ABG HCO3 27.9 MMOL/L (20-26); ABG Oxygen Saturation 98.1 % (95-100); ABG PH 7.519 (7.35-7.45); ABG PO2 107.1 MM HG (80-95); ABG TCO2 28.9 MMOL/L (23-27); Allen Test Positive; Pt O2 Delivery Device Ventilator
[2018-11-19] MEDS: PROPOFOL 1,000 MG/100 ML BOTTLE IV SCH ×3 (04:36→19:54)
[2018-11-19 04:51] LABS: Basophils % 0.2 % (0.0-0.8); Eosinophils # 0.1 10*3/uL (0.0-0.87); Eosinophils % 0.9 % (0.00-10.9); Hematocrit 36.3 VOL% (42.0-52.0); Hemoglobin 12.1 GM/DL (14.0-18.0); Immature Granulocytes % 1.6 %; Lymphocytes # 0.6 10*3/uL (1.4-4.0); Lymphocytes % 9.7 % (21.2-54.2); Mean Corpuscular HGB Conc 33.3 GM/DL (32-36); Mean Corpuscular Volume 91.4 FL (87-102); Mean Platelet Volume 11.7 FL (9.6-12.0); Monocytes % 4.5 % (1.7-12.7); Neutrophils % 83.1 % (38.7-73.9); Platelet Count 185 T/CUMM (130-400); Red Blood Count 3.97 MC/CUMM (3.8-5.5); Red Cell Distribution Width 14.4 % (9.3-17.3); White Blood Count 6.4 T/CUMM (4-12)
[2018-11-19] MEDS: AMPICILLIN INJ 2,000 MG in SODIUM CHLORIDE 0.9% 100 ML IV SCH ×4 (05:28→21:42)
[2018-11-19 05:52] LABS: Albumin 1.7 G/DL (3.4-5.0); Bilirubin,Total 0.8 MG/DL (0.2-1.0); Calcium 8.2 MG/DL (8.5-10.1); Total Protein 5.6 G/DL (6.4-8.3)
[2018-11-19] MEDS: POTASSIUM CHLORIDE 20 MEQ/15 ML UDCUP PER TUBE PRN ×4 (06:04→18:25)
[2018-11-19] MEDS: LEVOTHYROXINE 50 MCG TABLET PO SCH (06:31)
[2018-11-19] MEDS: DEXTROSE 5% 1,000 ML IV SCH ×3 (07:06→22:37)
[2018-11-19] MEDS ORDERED: POTASSIUM CHLORIDE 20 MEQ/15 ML UDCUP PER TUBE SCH ×3 (08:00→12:00)
[2018-11-19] MEDS: PANTOPRAZOLE 40 MG TABLET PO SCH (09:50)
[2018-11-19] MEDS: BISOPROLOL 5 MG TABLET PO SCH ×2 (09:50→20:48)
[2018-11-19] MEDS: METOPROLOL TARTRATE 25 MG TABLET PO SCH ×2 (09:50→20:48)
[2018-11-19] MEDS: ATORVASTATIN 10 MG TABLET PO SCH (09:50)
[2018-11-19] MEDS: CILOSTAZOL 100 MG TABLET PO SCH ×2 (09:50→20:48)
[2018-11-19] MEDS: amLODIPine 2.5 MG TABLET PO SCH (09:51)
[2018-11-19] MEDS: cefTRIAXone 2,000 MG in SYRINGE 1 EACH IV SCH ×2 (09:51→20:48)
[2018-11-19] MEDS: VANCOMYCIN INJ 1,250 MG in SODIUM CHLORIDE 0.9% 250 ML IV SCH ×2 (12:02→22:36)
[2018-11-19] MEDS: POTASSIUM CHLORIDE 20 MEQ/15 ML UDCUP PO SCH (20:48)
[2018-11-20] MEDS: ALBUTEROL/IPRATROPIUM 3 ML NEB RESP TX SCH ×4 (01:52→20:19)
[2018-11-20] MEDS: POTASSIUM CHLORIDE 20 MEQ/15 ML UDCUP PER TUBE PRN ×6 (02:25→18:20)
[2018-11-20 04:27] LABS: ABG Base Excess 3.3 MMOL/L (-2.5-2.5); ABG HCO3 27.3 MMOL/L (20-26); ABG Oxygen Saturation 98.3 % (95-100); ABG PCO2 39.3 MM HG (35-48); ABG PO2 127.7 MM HG (80-95); ABG TCO2 28.5 MMOL/L (23-27); Allen Test Positive; Pt O2 Delivery Device Ventilator
[2018-11-20] MEDS: AMPICILLIN INJ 2,000 MG in SODIUM CHLORIDE 0.9% 100 ML IV SCH ×4 (04:49→23:20)
[2018-11-20] MEDS: PROPOFOL 1,000 MG/100 ML BOTTLE IV SCH ×5 (04:50→23:45)
[2018-11-20 05:34] LABS: Albumin 1.5 G/DL (3.4-5.0); Bilirubin,Total 0.7 MG/DL (0.2-1.0); Calcium 7.7 MG/DL (8.5-10.1); Osmolality,Calculated 298.4 MOS/KG (273-304); Total Protein 5.3 G/DL (6.4-8.3)
[2018-11-20] MEDS: LEVOTHYROXINE 50 MCG TABLET PO SCH (06:17)
[2018-11-20] MEDS: DEXTROSE 5% 1,000 ML IV SCH ×2 (09:21→17:03)
[2018-11-20] MEDS: cefTRIAXone 2,000 MG in SYRINGE 1 EACH IV SCH ×2 (10:00→20:29)
[2018-11-20] MEDS: amLODIPine 2.5 MG TABLET PO SCH (10:04)
[2018-11-20] MEDS: ATORVASTATIN 10 MG TABLET PO SCH (10:04)
[2018-11-20] MEDS: METOPROLOL TARTRATE 25 MG TABLET PO SCH ×2 (10:04→20:29)
[2018-11-20] MEDS: CILOSTAZOL 100 MG TABLET PO SCH ×2 (10:05→20:29)
[2018-11-20] MEDS: PANTOPRAZOLE 40 MG TABLET PO SCH (10:06)
[2018-11-20] MEDS: BISOPROLOL 5 MG TABLET PO SCH ×2 (10:06→20:29)
[2018-11-20] MEDS: POTASSIUM CHLORIDE 20 MEQ/15 ML UDCUP PO SCH ×2 (10:06→20:29)
[2018-11-20] MEDS: VANCOMYCIN INJ 1,250 MG in SODIUM CHLORIDE 0.9% 250 ML IV SCH ×2 (10:58→20:35)
[2018-11-20] MEDS ORDERED: ATROPINE 1 MG/10 ML SYRINGE ONE (22:16)
[2018-11-21] MEDS: DEXTROSE 5% 1,000 ML IV SCH (01:30)
[2018-11-21] MEDS: ALBUTEROL/IPRATROPIUM 3 ML NEB RESP TX SCH ×4 (02:04→19:50)
[2018-11-21 04:43] LABS: Allen Test Positive; Pt O2 Delivery Device Ventilator
[2018-11-21] MEDS: AMPICILLIN INJ 2,000 MG in SODIUM CHLORIDE 0.9% 100 ML IV SCH ×3 (05:05→16:57)
[2018-11-21 05:27] LABS: ABG Base Excess 3.4 MMOL/L (-2.5-2.5); ABG HCO3 27.5 MMOL/L (20-26); ABG Oxygen Saturation 96.1 % (95-100); ABG PCO2 38.9 MM HG (35-48); ABG PH 7.456 (7.35-7.45); ABG PO2 77.3 MM HG (80-95); ABG TCO2 24.5 MMOL/L (23-27)
[2018-11-21 05:41] LABS: Basophils % 0.1 % (0.0-0.8); Eosinophils # 0.1 10*3/uL (0.0-0.87); Hematocrit 32.2 VOL% (42.0-52.0); Hemoglobin 10.3 GM/DL (14.0-18.0); Immature Granulocytes % 2.8 %; Immature Granulocytes Absolute 0.23 #; Lymphocytes # 0.7 10*3/uL (1.4-4.0); Lymphocytes % 8.6 % (21.2-54.2); Mean Corpuscular Volume 93.9 FL (87-102); Mean Platelet Volume 11.7 FL (9.6-12.0); Monocytes % 4.4 % (1.7-12.7); Neutrophils % 83.1 % (38.7-73.9); Platelet Count 180 T/CUMM (130-400); Red Blood Count 3.43 MC/CUMM (3.8-5.5); Red Cell Distribution Width 14.5 % (9.3-17.3); White Blood Count 8.3 T/CUMM (4-12)
[2018-11-21] MEDS: PROPOFOL 1,000 MG/100 ML BOTTLE IV SCH ×3 (05:50→18:32)
[2018-11-21 06:13] LABS: Albumin 1.5 G/DL (3.4-5.0); Bilirubin,Total 0.8 MG/DL (0.2-1.0); Calcium 7.9 MG/DL (8.5-10.1); Osmolality,Calculated 285.3 MOS/KG (273-304); Total Protein 5.4 G/DL (6.4-8.3)
[2018-11-21] MEDS: POTASSIUM CHLORIDE 20 MEQ/15 ML UDCUP PER TUBE PRN (06:49)
[2018-11-21] MEDS: LEVOTHYROXINE 50 MCG TABLET PO SCH (06:49)
[2018-11-21] MEDS ORDERED: FUROSEMIDE 40 MG/4 ML VIAL IM ONE (08:31)
[2018-11-21] MEDS: POTASSIUM CHLORIDE 20 MEQ/15 ML UDCUP PO SCH ×2 (09:36→21:21)
[2018-11-21] MEDS: amLODIPine 2.5 MG TABLET PO SCH (09:37)
[2018-11-21] MEDS: BISOPROLOL 5 MG TABLET PO SCH ×2 (09:37→21:21)
[2018-11-21] MEDS: ATORVASTATIN 10 MG TABLET PO SCH (09:37)
[2018-11-21] MEDS: CILOSTAZOL 100 MG TABLET PO SCH ×2 (09:37→21:21)
[2018-11-21] MEDS: METOPROLOL TARTRATE 25 MG TABLET PO SCH ×2 (09:37→21:21)
[2018-11-21] MEDS: PANTOPRAZOLE 40 MG TABLET PO SCH (09:37)
[2018-11-21] MEDS ORDERED: GLUCAGON 1 MG VIAL IM PRN (10:38)
[2018-11-21] MEDS ORDERED: DEXTROSE 50% 25 GM/50 ML VIAL IV PRN (10:38)
[2018-11-21] MEDS: cefTRIAXone 2,000 MG in SYRINGE 1 EACH IV SCH ×2 (11:08→21:21)
[2018-11-21] MEDS: LACTATED RINGERS 1,000 ML IV SCH ×2 (11:10→21:23)
[2018-11-21] MEDS: VANCOMYCIN INJ 1,250 MG in SODIUM CHLORIDE 0.9% 250 ML IV SCH (15:24)
[2018-11-22] MEDS: ALBUTEROL/IPRATROPIUM 3 ML NEB RESP TX SCH ×4 (01:05→19:40)
[2018-11-22] MEDS ORDERED: AMIODARONE 450 MG/9 ML VIAL IV ONE (01:40)
[2018-11-22] MEDS: PROPOFOL 1,000 MG/100 ML BOTTLE IV SCH ×5 (02:15→21:08)
[2018-11-22 04:26] LABS: Allen Test Positive; Pt O2 Delivery Device Ventilator
[2018-11-22 04:28] LABS: ABG Base Excess 4.7 MMOL/L (-2.5-2.5); ABG HCO3 28.7 MMOL/L (20-26); ABG Oxygen Saturation 98.8 % (95-100); ABG PH 7.473 (7.35-7.45); ABG PO2 141.9 MM HG (80-95); ABG TCO2 29.9 MMOL/L (23-27)
[2018-11-22 04:39] LABS: Basophils % 0.2 % (0.0-0.8); Eosinophils # 0.1 10*3/uL (0.0-0.87); Hematocrit 32.3 VOL% (42.0-52.0); Hemoglobin 10.6 GM/DL (14.0-18.0); Immature Granulocytes % 2.7 %; Immature Granulocytes Absolute 0.22 #; Lymphocytes # 0.7 10*3/uL (1.4-4.0); Lymphocytes % 8.6 % (21.2-54.2); Mean Corpuscular HGB Conc 32.8 GM/DL (32-36); Mean Corpuscular Volume 93.6 FL (87-102); Monocytes % 4.9 % (1.7-12.7); Neutrophils % 82.6 % (38.7-73.9); Platelet Count 210 T/CUMM (130-400); Red Blood Count 3.45 MC/CUMM (3.8-5.5); Red Cell Distribution Width 14.5 % (9.3-17.3); White Blood Count 8.1 T/CUMM (4-12)
[2018-11-22 04:45] LABS: Albumin 1.5 G/DL (3.4-5.0); Bilirubin,Total 0.5 MG/DL (0.2-1.0); Osmolality,Calculated 290.7 MOS/KG (273-304); Total Protein 5.7 G/DL (6.4-8.3)
[2018-11-22] MEDS: LEVOTHYROXINE 50 MCG TABLET PO SCH (06:04)
[2018-11-22] MEDS: POTASSIUM CHLORIDE 20 MEQ/15 ML UDCUP PER TUBE PRN (06:04)
[2018-11-22] MEDS: amLODIPine 2.5 MG TABLET PO SCH (08:35)
[2018-11-22] MEDS: ATORVASTATIN 10 MG TABLET PO SCH (08:36)
[2018-11-22] MEDS: METOPROLOL TARTRATE 25 MG TABLET PO SCH ×2 (08:37→21:22)
[2018-11-22] MEDS: PANTOPRAZOLE 40 MG TABLET PO SCH ×2 (08:37→08:50)
[2018-11-22] MEDS: BISOPROLOL 5 MG TABLET PO SCH ×2 (08:37→21:22)
[2018-11-22] MEDS: cefTRIAXone 2,000 MG in SYRINGE 1 EACH IV SCH ×2 (08:38→21:26)
[2018-11-22] MEDS: CILOSTAZOL 100 MG TABLET PO SCH ×2 (08:38→21:21)
[2018-11-22] MEDS: LACTATED RINGERS 1,000 ML IV SCH ×2 (08:43→19:30)
[2018-11-22] MEDS: POTASSIUM CHLORIDE 20 MEQ/15 ML UDCUP PO SCH ×2 (08:44→21:22)
[2018-11-22] MEDS: VANCOMYCIN INJ 1,250 MG in SODIUM CHLORIDE 0.9% 250 ML IV SCH (08:44)
[2018-11-22] MEDS ORDERED: FUROSEMIDE 40 MG/4 ML VIAL IV ONE (09:30)
[2018-11-22] MEDS: FAMOTIDINE 20 MG TABLET PO SCH (21:22)
[2018-11-23] MEDS: ALBUTEROL/IPRATROPIUM 3 ML NEB RESP TX SCH ×4 (01:30→19:40)
[2018-11-23] MEDS: PROPOFOL 1,000 MG/100 ML BOTTLE IV SCH ×4 (03:20→22:35)
[2018-11-23 05:15] LABS: Basophils % 0.2 % (0.0-0.8); Eosinophils # 0.1 10*3/uL (0.0-0.87); Eosinophils % 1.1 % (0.00-10.9); Hematocrit 30.3 VOL% (42.0-52.0); Hemoglobin 9.7 GM/DL (14.0-18.0); Immature Granulocytes % 2.1 %; Immature Granulocytes Absolute 0.12 #; Lymphocytes # 0.8 10*3/uL (1.4-4.0); Mean Corpuscular Volume 95.3 FL (87-102); Mean Platelet Volume 11.6 FL (9.6-12.0); Monocytes % 5.1 % (1.7-12.7); Neutrophils % 77.5 % (38.7-73.9); Platelet Count 205 T/CUMM (130-400); Red Blood Count 3.18 MC/CUMM (3.8-5.5); Red Cell Distribution Width 14.6 % (9.3-17.3); White Blood Count 5.7 T/CUMM (4-12)
[2018-11-23 05:26] LABS: ABG Base Excess 6.5 MMOL/L (-2.5-2.5); ABG HCO3 30.3 MMOL/L (20-26); ABG Oxygen Saturation 97.4 % (95-100); ABG PCO2 40.3 MM HG (35-48); ABG PH 7.486 (7.35-7.45); ABG PO2 88.9 MM HG (80-95); ABG TCO2 27.4 MMOL/L (23-27); Allen Test Positive; Pt O2 Delivery Device Ventilator
[2018-11-23] MEDS: LACTATED RINGERS 1,000 ML IV SCH ×2 (05:48→16:20)
[2018-11-23 06:02] LABS: Albumin 1.5 G/DL (3.4-5.0); Bilirubin,Total 0.9 MG/DL (0.2-1.0); Calcium 8.1 MG/DL (8.5-10.1); Total Protein 5.4 G/DL (6.4-8.3)
[2018-11-23] MEDS: LEVOTHYROXINE 50 MCG TABLET PO SCH (06:14)
[2018-11-23] MEDS: POTASSIUM CHLORIDE 20 MEQ/15 ML UDCUP PER TUBE PRN (06:16)
[2018-11-23] MEDS: cefTRIAXone 2,000 MG in SYRINGE 1 EACH IV SCH ×2 (08:53→19:53)
[2018-11-23] MEDS: ATORVASTATIN 10 MG TABLET PO SCH (08:53)
[2018-11-23] MEDS: CILOSTAZOL 100 MG TABLET PO SCH ×2 (08:54→20:00)
[2018-11-23] MEDS: FAMOTIDINE 20 MG TABLET PO SCH (08:54)
[2018-11-23] MEDS: METOPROLOL TARTRATE 25 MG TABLET PO SCH ×2 (08:54→20:00)
[2018-11-23] MEDS: POTASSIUM CHLORIDE 20 MEQ/15 ML UDCUP PO SCH ×2 (08:54→20:00)
[2018-11-23] MEDS: BISOPROLOL 5 MG TABLET PO SCH ×2 (08:54→20:00)
[2018-11-23] MEDS: amLODIPine 2.5 MG TABLET PO SCH (08:54)
[2018-11-23] MEDS: FUROSEMIDE 40 MG/4 ML VIAL IV SCH (16:49)
[2018-11-24] MEDS: ALBUTEROL/IPRATROPIUM 3 ML NEB RESP TX SCH ×4 (01:46→19:14)
[2018-11-24] MEDS: LACTATED RINGERS 1,000 ML IV SCH ×2 (02:16→09:00)
[2018-11-24 03:58] LABS: ABG Base Excess 6.7 MMOL/L (-2.5-2.5); ABG HCO3 30.3 MMOL/L (20-26); ABG PCO2 39.8 MM HG (35-48); ABG PO2 92.9 MM HG (80-95); ABG TCO2 31.6 MMOL/L (23-27); Allen Test Positive; Pt O2 Delivery Device Ventilator
[2018-11-24 05:25] LABS: Basophils % 0.2 % (0.0-0.8); Eosinophils % 0.3 % (0.00-10.9); Hematocrit 26.9 VOL% (42.0-52.0); Hemoglobin 8.7 GM/DL (14.0-18.0); Immature Granulocytes % 1.5 %; Lymphocytes # 0.8 10*3/uL (1.4-4.0); Lymphocytes % 12.2 % (21.2-54.2); Mean Corpuscular HGB Conc 32.3 GM/DL (32-36); Mean Corpuscular Volume 96.8 FL (87-102); Mean Platelet Volume 11.7 FL (9.6-12.0); Monocytes % 6.3 % (1.7-12.7); Neutrophils % 79.5 % (38.7-73.9); Platelet Count 189 T/CUMM (130-400); Red Blood Count 2.78 MC/CUMM (3.8-5.5); Red Cell Distribution Width 14.2 % (9.3-17.3); White Blood Count 6.6 T/CUMM (4-12)
[2018-11-24 05:46] LABS: Calcium 7.8 MG/DL (8.5-10.1); Osmolality,Calculated 291.8 MOS/KG (273-304)
[2018-11-24] MEDS: PROPOFOL 1,000 MG/100 ML BOTTLE IV SCH ×3 (06:24→22:47)
[2018-11-24] MEDS: LEVOTHYROXINE 50 MCG TABLET PO SCH (07:23)
[2018-11-24] MEDS: cefTRIAXone 2,000 MG in SYRINGE 1 EACH IV SCH ×2 (08:40→21:47)
[2018-11-24] MEDS: FUROSEMIDE 40 MG/4 ML VIAL IV SCH (08:40)
[2018-11-24] MEDS: amLODIPine 2.5 MG TABLET PO SCH (08:41)
[2018-11-24] MEDS: ATORVASTATIN 10 MG TABLET PO SCH (08:41)
[2018-11-24] MEDS: POTASSIUM CHLORIDE 20 MEQ/15 ML UDCUP PO SCH ×2 (08:41→21:47)
[2018-11-24] MEDS: CILOSTAZOL 100 MG TABLET PO SCH ×2 (08:42→21:47)
[2018-11-24] MEDS: BISOPROLOL 5 MG TABLET PO SCH ×2 (08:42→21:47)
[2018-11-24] MEDS: METOPROLOL TARTRATE 25 MG TABLET PO SCH ×2 (08:43→21:47)
[2018-11-24] MEDS: FAMOTIDINE 20 MG TABLET PO SCH (08:44)
[2018-11-24] MEDS: ACETAMINOPHEN 325 MG TABLET PO PRN (12:39)
[2018-11-25] MEDS: ALBUTEROL/IPRATROPIUM 3 ML NEB RESP TX SCH ×4 (00:37→19:16)
[2018-11-25 04:36] LABS: ABG Base Excess 7.2 MMOL/L (-2.5-2.5); ABG HCO3 30.8 MMOL/L (20-26); ABG Oxygen Saturation 89.3 % (95-100); ABG PCO2 39.8 MM HG (35-48); ABG PH 7.499 (7.35-7.45); ABG PO2 56.7 MM HG (80-95); ABG TCO2 27.6 MMOL/L (23-27); Allen Test Positive; Pt O2 Delivery Device Ventilator
[2018-11-25 04:48] LABS: Basophils % 0.3 % (0.0-0.8); Eosinophils # 0.1 10*3/uL (0.0-0.87); Eosinophils % 1.1 % (0.00-10.9); Hematocrit 28.7 VOL% (42.0-52.0); Hemoglobin 9.3 GM/DL (14.0-18.0); Immature Granulocytes % 1.4 %; Immature Granulocytes Absolute 0.09 #; Lymphocytes # 0.9 10*3/uL (1.4-4.0); Lymphocytes % 14.1 % (21.2-54.2); Mean Corpuscular HGB Conc 32.4 GM/DL (32-36); Mean Corpuscular Volume 93.8 FL (87-102); Mean Platelet Volume 11.8 FL (9.6-12.0); Monocytes % 4.4 % (1.7-12.7); Neutrophils % 78.7 % (38.7-73.9); Platelet Count 212 T/CUMM (130-400); Red Blood Count 3.06 MC/CUMM (3.8-5.5); White Blood Count 6.3 T/CUMM (4-12)
[2018-11-25 05:00] LABS: Calcium 8.2 MG/DL (8.5-10.1); Osmolality,Calculated 289.1 MOS/KG (273-304)
[2018-11-25] MEDS: LEVOTHYROXINE 50 MCG TABLET PO SCH (06:38)
[2018-11-25] MEDS: POTASSIUM CHLORIDE 20 MEQ/15 ML UDCUP PER TUBE PRN ×2 (06:38→22:40)
[2018-11-25] MEDS: PROPOFOL 1,000 MG/100 ML BOTTLE IV SCH ×2 (07:39→15:07)
[2018-11-25] MEDS: cefTRIAXone 2,000 MG in SYRINGE 1 EACH IV SCH (08:47)
[2018-11-25] MEDS: METOPROLOL TARTRATE 25 MG TABLET PO SCH ×2 (08:49→20:29)
[2018-11-25] MEDS: FAMOTIDINE 20 MG TABLET PO SCH (08:49)
[2018-11-25] MEDS: POTASSIUM CHLORIDE 20 MEQ/15 ML UDCUP PO SCH ×2 (08:49→20:29)
[2018-11-25] MEDS: ATORVASTATIN 10 MG TABLET PO SCH (08:49)
[2018-11-25] MEDS: BISOPROLOL 5 MG TABLET PO SCH ×2 (08:49→20:29)
[2018-11-25] MEDS: CILOSTAZOL 100 MG TABLET PO SCH ×2 (08:49→20:29)
[2018-11-25] MEDS: amLODIPine 2.5 MG TABLET PO SCH (08:49)
[2018-11-25] MEDS: FUROSEMIDE 40 MG/4 ML VIAL IV SCH (08:50)
[2018-11-25] MEDS: methylPREDNISolone SOD SUC 40 MG/1 ML VIAL IV SCH ×2 (08:50→16:53)
[2018-11-25] MEDS: INSULIN REGULAR 100 UNIT/ML SUBCUT SCH (18:06)
[2018-11-26] MEDS: PROPOFOL 1,000 MG/100 ML BOTTLE IV SCH ×4 (00:16→19:59)
[2018-11-26] MEDS: INSULIN REGULAR 100 UNIT/ML SUBCUT SCH ×4 (00:20→18:30)
[2018-11-26] MEDS: ALBUTEROL/IPRATROPIUM 3 ML NEB RESP TX SCH ×4 (00:24→21:09)
[2018-11-26] MEDS: methylPREDNISolone SOD SUC 40 MG/1 ML VIAL IV SCH ×3 (00:33→18:25)
[2018-11-26 03:57] LABS: ABG Base Excess 4.2 MMOL/L (-2.5-2.5); ABG HCO3 27.8 MMOL/L (20-26); ABG Oxygen Saturation 97.9 % (95-100); ABG PH 7.482 (7.35-7.45); ABG PO2 111.4 MM HG (80-95); Allen Test Positive; Pt O2 Delivery Device Ventilator
[2018-11-26 04:35] LABS: Basophils % 0.2 % (0.0-0.8); Hematocrit 32.4 VOL% (42.0-52.0); Hemoglobin 10.6 GM/DL (14.0-18.0); Immature Granulocytes % 0.9 %; Immature Granulocytes Absolute 0.05 #; Lymphocytes # 0.5 10*3/uL (1.4-4.0); Lymphocytes % 8.2 % (21.2-54.2); Mean Corpuscular HGB Conc 32.7 GM/DL (32-36); Mean Corpuscular Volume 93.9 FL (87-102); Mean Platelet Volume 11.6 FL (9.6-12.0); Monocytes % 1.8 % (1.7-12.7); Neutrophils % 88.9 % (38.7-73.9); Platelet Count 254 T/CUMM (130-400); Red Blood Count 3.45 MC/CUMM (3.8-5.5); Red Cell Distribution Width 13.3 % (9.3-17.3); White Blood Count 5.6 T/CUMM (4-12)
[2018-11-26 04:47] LABS: Calcium 8.3 MG/DL (8.5-10.1); Osmolality,Calculated 290.4 MOS/KG (273-304)
[2018-11-26 04:51] LABS: Prealbumin 19.5 MG/DL (20-40)
[2018-11-26] MEDS: LEVOTHYROXINE 50 MCG TABLET PO SCH (05:37)
[2018-11-26] MEDS: CILOSTAZOL 100 MG TABLET PO SCH ×2 (09:05→21:53)
[2018-11-26] MEDS: TICAGRELOR 90 MG TABLET PO SCH (09:05)
[2018-11-26] MEDS: BISOPROLOL 5 MG TABLET PO SCH (09:05)
[2018-11-26] MEDS: POTASSIUM CHLORIDE 20 MEQ/15 ML UDCUP PO SCH ×2 (09:05→21:53)
[2018-11-26] MEDS: FUROSEMIDE 40 MG/4 ML VIAL IV SCH (09:06)
[2018-11-26] MEDS: amLODIPine 2.5 MG TABLET PO SCH (09:07)
[2018-11-26] MEDS: FAMOTIDINE 20 MG TABLET PO SCH (09:07)
[2018-11-26] MEDS: ATORVASTATIN 10 MG TABLET PO SCH (09:07)
[2018-11-26] MEDS: METOPROLOL TARTRATE 25 MG TABLET PO SCH (09:07)
[2018-11-26] MEDS ORDERED: ENOXAPARIN 30 MG/0.3 ML SYRINGE SUBCUT SCH (21:00)
[2018-11-26] MEDS: METOPROLOL TARTRATE 50 MG TABLET PO SCH (21:53)
[2018-11-27] MEDS: INSULIN REGULAR 100 UNIT/ML SUBCUT SCH ×5 (00:19→23:36)
[2018-11-27] MEDS: methylPREDNISolone SOD SUC 40 MG/1 ML VIAL IV SCH ×3 (00:20→16:57)
[2018-11-27] MEDS: ALBUTEROL/IPRATROPIUM 3 ML NEB RESP TX SCH ×4 (02:26→19:44)
[2018-11-27] MEDS: PROPOFOL 1,000 MG/100 ML BOTTLE IV SCH ×4 (03:27→19:25)
[2018-11-27 03:51] LABS: Hematocrit 32.2 VOL% (42.0-52.0); Hemoglobin 10.3 GM/DL (14.0-18.0); Immature Granulocytes % 1.2 %; Immature Granulocytes Absolute 0.07 #; Lymphocytes # 0.7 10*3/uL (1.4-4.0); Lymphocytes % 11.1 % (21.2-54.2); Mean Corpuscular Volume 93.6 FL (87-102); Monocytes % 1.8 % (1.7-12.7); Neutrophils % 85.9 % (38.7-73.9); Platelet Count 253 T/CUMM (130-400); Red Blood Count 3.44 MC/CUMM (3.8-5.5); Red Cell Distribution Width 13.4 % (9.3-17.3)
[2018-11-27 03:54] LABS: ABG Base Excess 5.1 MMOL/L (-2.5-2.5); ABG Oxygen Saturation 95.3 % (95-100); ABG PCO2 36.8 MM HG (35-48); ABG PH 7.497 (7.35-7.45); ABG PO2 75.6 MM HG (80-95); ABG TCO2 25.5 MMOL/L (23-27); Allen Test Positive; Pt O2 Delivery Device Ventilator
[2018-11-27 04:15] LABS: Calcium 8.5 MG/DL (8.5-10.1); Osmolality,Calculated 297.1 MOS/KG (273-304)
[2018-11-27] MEDS: LEVOTHYROXINE 50 MCG TABLET PO SCH (06:02)
[2018-11-27] MEDS: TICAGRELOR 90 MG TABLET PO SCH (09:43)
[2018-11-27] MEDS: FUROSEMIDE 40 MG/4 ML VIAL IV SCH (09:43)
[2018-11-27] MEDS: amLODIPine 2.5 MG TABLET PO SCH (09:44)
[2018-11-27] MEDS: METOPROLOL TARTRATE 50 MG TABLET PO SCH ×2 (09:44→21:22)
[2018-11-27] MEDS: POTASSIUM CHLORIDE 20 MEQ/15 ML UDCUP PO SCH (09:44)
[2018-11-27] MEDS: ATORVASTATIN 10 MG TABLET PO SCH (09:44)
[2018-11-27] MEDS: CILOSTAZOL 100 MG TABLET PO SCH ×2 (09:44→21:22)
[2018-11-27] MEDS: FAMOTIDINE 20 MG TABLET PO SCH (09:44)
[2018-11-27] MEDS: ENOXAPARIN 40 MG/0.4 ML SYRINGE SUBCUT SCH (21:23)
[2018-11-28] MEDS: methylPREDNISolone SOD SUC 40 MG/1 ML VIAL IV SCH ×3 (00:06→16:35)
[2018-11-28] MEDS: ALBUTEROL/IPRATROPIUM 3 ML NEB RESP TX SCH ×4 (00:57→19:14)
[2018-11-28 03:37] LABS: ABG HCO3 30.8 MMOL/L (20-26); ABG Oxygen Saturation 98.1 % (95-100); ABG PCO2 44.1 MM HG (35-48); ABG PH 7.464 (7.35-7.45); Allen Test Positive; Pt O2 Delivery Device Ventilator
[2018-11-28 03:43] LABS: Basophils % 0.2 % (0.0-0.8); Hematocrit 34.4 VOL% (42.0-52.0); Hemoglobin 11.3 GM/DL (14.0-18.0); Immature Granulocytes % 0.8 %; Immature Granulocytes Absolute 0.05 #; Lymphocytes # 0.5 10*3/uL (1.4-4.0); Lymphocytes % 8.1 % (21.2-54.2); Mean Corpuscular HGB Conc 32.8 GM/DL (32-36); Monocytes % 2.4 % (1.7-12.7); Neutrophils % 88.5 % (38.7-73.9); Platelet Count 285 T/CUMM (130-400); Red Cell Distribution Width 13.2 % (9.3-17.3); White Blood Count 6.6 T/CUMM (4-12)
[2018-11-28] MEDS: PROPOFOL 1,000 MG/100 ML BOTTLE IV SCH ×5 (04:05→21:40)
[2018-11-28 04:13] LABS: Calcium 8.4 MG/DL (8.5-10.1); Osmolality,Calculated 297.1 MOS/KG (273-304)
[2018-11-28] MEDS: LEVOTHYROXINE 50 MCG TABLET PO SCH (05:50)
[2018-11-28] MEDS: INSULIN REGULAR 100 UNIT/ML SUBCUT SCH ×3 (06:00→17:05)
[2018-11-28] MEDS: FAMOTIDINE 20 MG TABLET PO SCH (08:46)
[2018-11-28] MEDS: METOPROLOL TARTRATE 50 MG TABLET PO SCH ×2 (08:46→21:55)
[2018-11-28] MEDS: TICAGRELOR 90 MG TABLET PO SCH (08:46)
[2018-11-28] MEDS: CILOSTAZOL 100 MG TABLET PO SCH ×2 (08:46→21:55)
[2018-11-28] MEDS: ATORVASTATIN 10 MG TABLET PO SCH (08:46)
[2018-11-28] MEDS: amLODIPine 2.5 MG TABLET PO SCH (08:46)
[2018-11-28] MEDS ORDERED: DEXTROSE 10% 250 ML IV ONE (09:34)
[2018-11-28] MEDS: ENOXAPARIN 40 MG/0.4 ML SYRINGE SUBCUT SCH (21:55)
[2018-11-29] MEDS: methylPREDNISolone SOD SUC 40 MG/1 ML VIAL IV SCH ×2 (00:10→09:53)
[2018-11-29] MEDS: INSULIN REGULAR 100 UNIT/ML SUBCUT SCH ×3 (00:39→11:38)
[2018-11-29] MEDS: ALBUTEROL/IPRATROPIUM 3 ML NEB RESP TX SCH ×3 (01:45→12:37)
[2018-11-29 03:31] LABS: ABG Base Excess 5.2 MMOL/L (-2.5-2.5); ABG Oxygen Saturation 95.1 % (95-100); ABG PCO2 40.2 MM HG (35-48); ABG PO2 75.9 MM HG (80-95); ABG TCO2 25.8 MMOL/L (23-27); Allen Test Positive; Pt O2 Delivery Device Ventilator
[2018-11-29 04:38] LABS: Basophils % 0.1 % (0.0-0.8); Hemoglobin 11.2 GM/DL (14.0-18.0); Immature Granulocytes Absolute 0.07 #; Lymphocytes # 0.7 10*3/uL (1.4-4.0); Lymphocytes % 9.8 % (21.2-54.2); Mean Corpuscular Volume 94.6 FL (87-102); Mean Platelet Volume 11.4 FL (9.6-12.0); Monocytes % 1.9 % (1.7-12.7); Neutrophils % 87.2 % (38.7-73.9); Platelet Count 289 T/CUMM (130-400); Red Cell Distribution Width 13.2 % (9.3-17.3); White Blood Count 6.9 T/CUMM (4-12)
[2018-11-29 05:04] LABS: Calcium 8.4 MG/DL (8.5-10.1); Osmolality,Calculated 294.3 MOS/KG (273-304)
[2018-11-29] MEDS: PROPOFOL 1,000 MG/100 ML BOTTLE IV SCH ×2 (05:05→11:45)
[2018-11-29] MEDS: LEVOTHYROXINE 50 MCG TABLET PO SCH (05:49)
[2018-11-29] MEDS: FAMOTIDINE 20 MG TABLET PO SCH (09:53)
[2018-11-29] MEDS: amLODIPine 2.5 MG TABLET PO SCH (09:53)
[2018-11-29] MEDS: CILOSTAZOL 100 MG TABLET PO SCH (09:53)
[2018-11-29] MEDS: TICAGRELOR 90 MG TABLET PO SCH (09:54)
[2018-11-29] MEDS: METOPROLOL TARTRATE 50 MG TABLET PO SCH (09:54)
[2018-11-29] MEDS: ATORVASTATIN 10 MG TABLET PO SCH (09:54)
[2018-11-29 14:46] VITALS: BP 155/83
== END 2018-11-29 14:20 | DRG 91 ==
LOC: N.ED 18:06 → N.EDINP 18:06 → N.4E 22:02 → SUATTDRO 11-12 13:20 → N.4E 11-13 13:36 → N.CC 11-14 08:28
PROVIDERS: ADMIT Internal Medicine; ATTEND Internal Medicine